=== PATIENT | male | born 1995 ===

== ENCOUNTER 2021-12-18 15:52 | Emergency (ER) | payer SELFPAY ==
[2021-12-18 15:58] VITALS: BP 137/88
[2021-12-18] MEDS ORDERED: hydrOXYzine HCL 25 MG TAB PO ONE (19:37)
--- NOTE | 2021-12-18 19:38 | Event Note ---
ED Screening Note ED Screening Note: Language line used for English interpretation Patient states he has a history of depression anxiety He states he has not had his medication in a couple of months and is not sure why he takes He states today he was driving when he began to feel like his heart was racing and he had a pinching pain in his chest He denies any SI or HI He endorses tobacco and alcohol use He denies drug use This initial assessment/diagnostic orders/clinical plan/treatment(s) is/are subject to change based on patients health status, clinical progression and re- assessment by fellow clinical providers in the ED. Further treatment and workup at subsequent clinical providers discretion. Patient/guardian urged not to elope from the ED as their condition may be serious if not clinically assessed and managed. Initial orders include: X-ray, EKG, hydroxyzine
--- NOTE | 2021-12-18 20:21 | Emergency Department Report ---
ED Anxiety HPI - General Chief Complaint: Anxiety Stated Complaint: ANXIETY Time Seen by Provider: 12/18/21 19:39 Source: EMS Mode of arrival: Stretcher - History of Present Illness Initial Comments: Patient is a 26-year-old male with a past medical history of anxiety who is presenting status post what likely is anxiety attack. Patient was driving and suddenly became short of breath with palpitations and nervous feeling. Patient pulled over and the symptoms did not subside so he came to the emergency department. Denies any cough cold congestion fevers chills or chest pain. Patient has felt like this in the past. Patient is currently on no medications. - Related Data Home Medications: Previous Rx's Medication Instructions Recorded Last Taken Type hydrOXYzine HCL [Atarax] 25 mg PO TID PRN #20 tablet 12/18/21 Unknown Rx ED Review of Systems ROS: Stated complaint: ANXIETY Other details as noted in HPI Comment: All other systems reviewed and negative ED Past Medical Hx - Medications Home Medications: Home Medications Medication Instructions Recorded Confirmed Last Taken Type hydrOXYzine HCL [Atarax] 25 mg PO TID PRN #20 tablet 12/18/21 Unknown Rx ED Physical Exam - General Limitations: Other General appearance: alert, in no apparent distress - Head Head exam: Present: atraumatic, normocephalic - Eye Eye exam: Present: normal appearance, PERRL, EOMI - ENT ENT exam: Present: mucous membranes moist - Neck Neck exam: Present: normal inspection - Respiratory Respiratory exam: Present: normal lung sounds bilaterally. Absent: respiratory distress, wheezes, rales, rhonchi - Cardiovascular Cardiovascular Exam: Present: regular rate, normal rhythm, normal heart sounds. Absent: systolic murmur, diastolic murmur, rubs, gallop - GI/Abdominal GI/Abdominal exam: Present: soft, normal bowel sounds. Absent: distended, tenderness, guarding - Rectal Rectal exam: Present: deferred - Extremities Exam Extremities exam: Present: normal inspection - Back Exam Back exam: Present: normal inspection - Neurological Exam Neurological exam: Present: alert, oriented X3 - Psychiatric Psychiatric exam: Present: normal affect, normal mood - Skin Skin exam: Present: warm, dry, intact, normal color. Absent: rash ED Course Vital Signs 12/18/21 15:57 Temperature 99.9 F H Pulse Rate 85 Respiratory 16 Rate Blood Pressure 137/88 [Left] O2 Sat by Pulse 99 Oximetry ED Medical Decision Making - EKG Data -: EKG Interpreted by Me EKG shows normal: sinus rhythm, axis, intervals, QRS complexes, ST-T waves Rate: normal - EKG Data Interpretation: normal EKG - Radiology Data Chest x-ray shows no acute process - Medical Decision Making Patient's chest x-ray and EKG within normal limits. We will start the patient on a short course of Vistaril given follow-up as an outpatient. Critical care attestation.: If time is entered above; I have spent that time in minutes in the direct care of this critically ill patient, excluding procedure time. ED Disposition Clinical Impression: Anxiety reaction Disposition: 01 HOME / SELF CARE / HOMELESS Is pt being admited?: No Does the pt Need Aspirin: No Condition: Stable Instructions: Managing Anxiety, Adult Prescriptions: hydrOXYzine HCL [Atarax] 25 mg PO TID PRN #20 tablet PRN Reason: Anxiety Time of Disposition: 20:22
--- NOTE | 2021-12-18 21:01 | XRay Report ---
CHEST 2 VIEWS INDICATION / CLINICAL INFORMATION: CP. COMPARISON: None available. FINDINGS: SUPPORT DEVICES: None. HEART / MEDIASTINUM: No significant abnormality. LUNGS / PLEURA: No significant pulmonary or pleural abnormality. No pneumothorax. ADDITIONAL FINDINGS: No significant additional findings. IMPRESSION: 1. No acute findings. Signer Name: Alex Wilcox MD Signed: 12/18/2021 8:57 PM Workstation Name: [id number]
--- NOTE | 2021-12-19 09:00 | Electrocardiograph Report ---
[facility] Test Date: 2021-12-18 Test Time: 19:40:00 Pat Name: LENORA DSOUZA Department: Room: Gender: M [employer] Software Developer: AURELIANO : 1995 Requested By: MARIE CASTRO Order Number: [id number] Reading MD: Gomez Rojo Measurements Intervals [place] Rate: 77 P: 50 [place]: 106 QRS: 52 QRSD: 98 T: 30 QT: 374 QTc: 423 Interpretive Statements Sinus rhythm No previous ECG available for comparison Electronically Signed On 12-19-2021 8:59:54 EST by Gomez Rojo
== END 2021-12-18 21:00 | disposition home or self-care (01) ==
LOC: ED 15:52
DX: F41.1 Generalized anxiety disorder (principal)
CPT/HCPCS: 71046; 93005; 93010; 99283